=== PATIENT | female | born 1995 | race Caucasian/White ===

== ENCOUNTER 2018-10-05 14:33 | Emergency (ER) | payer OTHER ==
[~2018-10-05] VITALS: Ht 154.9 cm; Wt 61.6 kg
[~2018-10-05 14:33] MED LIST: IBUP-1542 PO
[2018-10-05 14:36] VITALS: BP 133/81; PULSE 83; RESP 18; Ht 154.9 cm; Wt 61.6 kg
--- NOTE | 2018-10-05 15:53 | ERD ---
ER Documentation Chief Complaint Chief Complaint right 4th toe pain/purplish discoloration, hit it last night HPI 23-year-old female presents with pain and bruising of the right fourth toe after kicking a cart at [employer] yesterday. She has no restricted range of motion, deficits, additional injury. ROS All systems reviewed and are negative except as per history of present illness. Medications Home Meds Active Scripts Ibuprofen* (Motrin*) 600 Mg Tab, 600 MG PO Q6, #20 TAB Prov:LEROY STRAUSS MD 10/05/18 FmHx Family History: diabetes; No coronary disease, No other Physical Exam Vitals Vital Signs Date Temp Pulse Resp B/P (MAP) Pulse Ox O2 O2 Flow FiO2 Time Delivery Rate 10/05/18 98.5 83 18 133/81 97 14:36 (98) Physical Exam Const: No acute distress Head: Atraumatic Eyes: Normal Conjunctiva ENT: Normal External Ears, Nose and Mouth. Neck: Full range of motion. No meningismus. Resp: Clear to auscultation bilaterally Cardio: Regular rate and rhythm, no murmurs Abd: Soft, non tender, non distended. Normal bowel sounds Skin: No petechiae or rashes Back: No midline or flank tenderness Ext: No cyanosis, or edema bruising and swelling of the right fourth toe without deformities. Cap refill is less than 2 seconds. Neur: Awake and alert Psych: Normal Mood and Affect Procedures/MDM X-ray right fourth toe 2V Interpreted by me: Bones: Nondisplaced fracture of the proximal right fourth toe Joints: No dislocation Foreign Body: None impression-nondisplaced fracture of the right fourth toe. Patient placed in right fourth toe lelia tape lelia tape and right postop shoe. Patient neurovascular intact after the shoe and lelia tape. Patient presents with nondisplaced fracture right fourth toe without signs of ischemia, deficits or infection. She will be discharged home with primary care and orthopedic follow-up and return precautions for fevers, redness, new worsening symptoms. Departure Diagnosis: Primary Impression: Fracture, toe Encounter type: initial encounter Toe: lesser toe Fracture type: closed Phalanx: unspecified phalanx Fracture alignment: nondisplaced Laterality: right Qualified Codes: S92.504A - Nondisplaced unspecified fracture of right lesser toe(s), initial encounter for closed fracture Condition: Stable Patient Instructions: Fracture, Toe [Closed] Additional Instructions: X-ray confirms fractured toe. See primary doctor and orthopedist for further evaluation. Recheck for redness, fevers, new or worsening symptoms. LEROY STRAUSS MD Oct 05, 2018 15:53
== END 2018-10-05 15:45 | disposition home or self-care (01) ==
LOC: FTE 14:33 → E/R 15:45
DX: S92.504A Nondisplaced unspecified fracture of right lesser toe(s), initial encounter for closed fracture (principal); W22.09XA Striking against other stationary object, initial encounter; Y92.89 Other specified places as the place of occurrence of the external cause
CPT/HCPCS: 73660; Z7502